=== PATIENT | female | born 1950 | race Caucasian/White ===

== ENCOUNTER 2024-11-21 10:05 | Outpatient (CLI) | payer MEDICARE ==
[2024-11-21 11:20] LABS: #Basophils 0.06 10x3/uL (0.0-0.2); #Eosinophils 0.25 10x3/uL (0.0-0.7); #Monocytes 0.77 10x3/uL (0.11-0.59); #Neutrophils 6.31 10x3/uL (1.40-6.50); %Basophils 0.6 % (0.0-1.0); %Eosinophils 2.7 % (0.0-10.0); %Lymphocytes 20.4 % (21.0-51.0); %Monocytes 8.3 % (0.0-10.0); %Neutrophils 67.6 % (42.0-75.0); Hematocrit 35.5 % (36.0-47.0); Hemoglobin 11.5 g/dL (12.0-16.0); Mean Corpuscular Hemoglobin 32.1 pg (27.0-31.0); Mean Corpuscular Volume 99.2 fL (78.0-98.0); Platelet Count 252 10x3/uL (130-400); Red Blood Cell (RBC) Count 3.58 mill/uL (4.20-5.40); White Blood Cell (WBC) Count 9.33 10x3/uL (4.8-10.8)
[2024-11-21 11:26] LABS: Bacteria/HPF None Seen HPF (None Seen); Glucose, Urine (Dipstick) Normal (Negative); Leukocyte 25 Leu/uL (Negative); Protein, Urine (Dipstick) Negative (Neg-Trace); RBC/HPF 0-3 HPF (0-3); Specific Gravity, Urine 1.021 (1.002-1.036); WBC/HPF 0-3 HPF (0-3)
[2024-11-21 11:34] LABS: INR-International Normal Ratio 2.2; Prothrombin Time 24.8 sec (12.0-14.7)
[2024-11-21 11:58] LABS: Anion Gap 15 mmol/L (10-20); BUN (Urea Nitrogen) 19 mg/dL (9.8-20.1); Calc. Creatinine Clearance 0 mL/min (70-130); Calcium 9.4 mg/dL (7.8-10.44); Carbon Dioxide 25 mmol/L (23-31); Chloride 105 mmol/L (98-107); Glucose 93 mg/dL (83-110); Potassium 4.0 mmol/L (3.5-5.1); Sodium 141 mmol/L (136-145)
== END 2024-11-21 10:06 | disposition home or self-care (01) ==
LOC: LABBT 10:05
PROVIDERS: ATTEND Orthopaedic Surgery
DX: Z01.818 Encounter for other preprocedural examination (principal); M17.12 Unilateral primary osteoarthritis, left knee; I70.0 Atherosclerosis of aorta; I51.7 Cardiomegaly
CPT/HCPCS: 71046; 80048; 81001; 85025; 85610; 87081; 93005; 93010

== ENCOUNTER 2024-11-21 11:26 | Outpatient (CLI) | payer MEDICARE | END 2024-11-21 11:27 | disposition home or self-care (01) | LOC: CT 11:26 | PROVIDERS: ATTEND Orthopaedic Surgery | DX: Z01.818 Encounter for other preprocedural examination (principal); M17.12 Unilateral primary osteoarthritis, left knee; M25.462 Effusion, left knee; I70.0 Atherosclerosis of aorta; I51.7 Cardiomegaly | CPT/HCPCS: 71046; 80048; 81001; 85025; 85610; 87081; 93005; 93010 ==

== ENCOUNTER 2024-11-28 08:00 | Observation (INO) | payer MEDICARE ==
[2024-11-21 10:34] VITALS: BMI 27.4
[2024-11-28] MEDS ORDERED: Ropivacaine 0.5% HCl/PF (150 MG/30 ML VIAL) ONE (09:09)
[2024-11-28] MEDS ORDERED: PROPOFOL 20 ML ONE (09:20)
[2024-11-28] MEDS ORDERED: Lidocaine 1% PF 5 ML VIAL ONE (09:21)
[2024-11-28] MEDS ORDERED: Ondansetron PF 4 MG/2 ML Vial ONE (09:21)
[2024-11-28] MEDS ORDERED: CEFAZOLIN 2 GM VIAL ONE (09:23)
[2024-11-28] MEDS ORDERED: Bupivacaine 0.25% HCL 30 ML VIAL ONE (09:23)
[2024-11-28] MEDS ORDERED: Vancomycin 1 GM/200 ML (PREMIX FOIL) BAG ONE (09:25)
[2024-11-28] MEDS ORDERED: Tranexamic Acid 1,000 MG/10 ML VIAL ONE ×2 (09:25→11:48)
[2024-11-28] MEDS ORDERED: Ondansetron PF 4 MG/2 ML Vial IVP PRN ×2 (10:15→11:19)
[2024-11-28] MEDS ORDERED: Ropivacaine 0.2% 550 ML 550 ML NERVE BLCK SCH (10:15)
[2024-11-28] MEDS ORDERED: diphenhydrAMINE 25 MG CAP PO PRN (11:19)
[2024-11-28] MEDS ORDERED: fentaNYL PF 100 MCG/2 ML SYRINGE ONE ×2 (11:48→12:07)
[2024-11-28] MEDS ORDERED: HYDROmorphone 0.5 MG/0.5 ML SYRINGE ONE ×4 (11:48→12:54)
[2024-11-28] MEDS ORDERED: Ketorolac Tromethamine 30 MG (1 mL) VIAL ONE (12:07)
[2024-11-28] MEDS: Ketorolac Tromethamine 30 MG (1 mL) VIAL IVP SCH (14:38)
[2024-11-28 14:42] LABS: INR-International Normal Ratio 1.1; Prothrombin Time 14.5 sec (12.0-14.7)
[2024-11-28] MEDS: Sertraline 100 MG TAB PO SCH (20:19)
[2024-11-28] MEDS: Aspirin 81 mg Enteric Coated Tablet PO SCH (20:20)
[2024-11-28] MEDS: Senokot S 8.6-50 MG TAB PO SCH (20:22)
[2024-11-28] MEDS: Ferrous Gluconate 324 MG TAB PO SCH (20:22)
[2024-11-28] MEDS: QUEtiapine 25 MG TAB PO SCH (20:23)
[2024-11-28] MEDS: Melatonin 3 MG TAB PO SCH (22:52)
[2024-11-28] MEDS: Vancomycin 1 GM in Premix 1 BAG IVPB SCH (22:54)
[2024-11-29 05:57] LABS: Hematocrit 26.7 % (36.0-47.0); Hemoglobin 8.4 g/dL (12.0-16.0); Mean Corpuscular Hemoglobin 32.1 pg (27.0-31.0); Mean Corpuscular Volume 101.9 fL (78.0-98.0); Platelet Count 202 10x3/uL (130-400); Red Blood Cell (RBC) Count 2.62 mill/uL (4.20-5.40); White Blood Cell (WBC) Count 10.16 10x3/uL (4.8-10.8)
[2024-11-29 06:06] LABS: INR-International Normal Ratio 1.2; Prothrombin Time 14.9 sec (12.0-14.7)
[2024-11-29] MEDS: HYDROcodone/Acetaminophen 10/325 mg Tablet PO PRN ×2 (06:51→13:27)
[2024-11-29] MEDS: Magnesium Oxide 400 MG TAB PO SCH (09:40)
[2024-11-29] MEDS: Pantoprazole 40 MG DR.TAB PO SCH (09:40)
[2024-11-29] MEDS: Multivitamin W/ Minerals 1 TAB PO SCH (09:40)
[2024-11-29] MEDS: Enoxaparin 40 MG (0.4 mL) SYRINGE SC SCH (09:41)
[2024-11-29] MEDS: Cholecalciferol 1,000 UNITS (25 MCG) TAB PO SCH (09:41)
[2024-11-29] MEDS: Losartan 25 MG TAB PO SCH (09:41)
[2024-11-29 12:07] VITALS: BP 107/64; TEMP 97.9
[2024-11-29] MEDS: Acetaminophen 325 MG TAB PO PRN (12:26)
== END 2024-11-29 13:40 | disposition home or self-care (01) ==
LOC: SDC 08:00 → SURG B 13:38 → SDC 18:15 → SURG B 18:16
PROVIDERS: ADMIT Orthopaedic Surgery; ATTEND Orthopaedic Surgery
PROC: 0SRD0JZ Replacement of Left Knee Joint with Synthetic Substitute, Open Approach (ICD-10-PCS; principal; 2024-11-28)
PROC: 3E0T3BZ Introduction of Anesthetic Agent into Peripheral Nerves and Plexi, Percutaneous Approach (ICD-10-PCS; 2024-11-28)
DX: M17.12 Unilateral primary osteoarthritis, left knee (principal); I10 Essential (primary) hypertension; E78.00 Pure hypercholesterolemia, unspecified; M23.42 Loose body in knee, left knee; Z90.710 Acquired absence of both cervix and uterus; Z98.890 Other specified postprocedural states; Z88.8 Allergy status to other drugs, medicaments and biological substances; Z91.048 Other nonmedicinal substance allergy status; Z79.899 Other long term (current) drug therapy
CPT/HCPCS: 0055T; 27447; 64448; 36415; 85027; 85610; A4306; C1713; C1776; C1889; J0665; J1100; J1171; J1650; J1885; J2250; J2405; J2704; J2795; J3010; J3372; J3373